=== PATIENT | female | born 2000 | race Caucasian/White ===

== ENCOUNTER 2022-02-02 12:17 | Emergency (ER) | payer MEDICAID ==
[2022-02-02] MEDS: Lidocaine 2% Viscous Solution 15 ML UD PO ONE (12:23)
[2022-02-02] MEDS: LORazepam 2 MG/ML SDV ONE (12:38)
[2022-02-02] MEDS: Midazolam 1 MG/ML 2 ML SDV IM ONE (12:39)
[2022-02-02] MEDS: LORazepam 2 MG/ML SDV IM STA (12:39)
[2022-02-02] MEDS: Lidocaine 2% Viscous Solution 15 ML UD ONE (12:55)
== END 2022-02-02 14:20 | disposition home or self-care (01) ==
LOC: FB.ED 12:17
DX: S09.90XA Unspecified injury of head, initial encounter (principal); S61.302A Unspecified open wound of right middle finger with damage to nail, initial encounter; R55 Syncope and collapse; Z91.040 Latex allergy status; W22.8XXA Striking against or struck by other objects, initial encounter
CPT/HCPCS: 70450; 96372; 99284; A9270; J2060

== ENCOUNTER 2022-02-28 12:40 | Emergency (ER) | payer OTHER, MEDICAID ==
[2022-02-28] MEDS ORDERED: Sodium Chloride 0.9% 10 ML Syringe FLUSH PRN (13:05)
[2022-02-28] MEDS ORDERED: Ketorolac 30 MG/ML SDV IVPUSH ONE (13:11)
[2022-02-28] MEDS ORDERED: Cyclobenzaprine 10 MG Tab PO ONE (13:11)
[2022-02-28 13:34] LABS: ESTIMATED GFR 94 mL/min (>60)
[2022-02-28] MEDS ORDERED: Sodium Chloride 0.9% 1,000 ML IV SCH (14:15)
== END 2022-02-28 16:15 | disposition home or self-care (01) ==
LOC: FB.ED 12:40
DX: S16.1XXA Strain of muscle, fascia and tendon at neck level, initial encounter (principal); S29.012A Strain of muscle and tendon of back wall of thorax, initial encounter; R55 Syncope and collapse; Z91.040 Latex allergy status; Z91.018 Allergy to other foods; Z79.899 Other long term (current) drug therapy; V49.40XA Driver injured in collision with unspecified motor vehicles in traffic accident, initial encounter; Y92.410 Unspecified street and highway as the place of occurrence of the external cause
CPT/HCPCS: 36415; 70450; 72040; 72072; 72100; 80053; 81001; 82150; 83690; 85025; 85610; 85730; 93005; 96374; 99285; A9270; J1885; J7030

== ENCOUNTER 2022-03-02 23:18 | Emergency (ER) | payer MEDICAID, OTHER | END 2022-03-03 | disposition home or self-care (01) | LOC: FB.ED 23:18 | DX: R42 Dizziness and giddiness (principal); Z79.899 Other long term (current) drug therapy; Z88.8 Allergy status to other drugs, medicaments and biological substances | CPT/HCPCS: 99284 ==

== ENCOUNTER 2022-03-18 19:32 | Emergency (ER) | payer MEDICAID, OTHER ==
[2022-03-18 20:00] LABS: ESTIMATED GFR 109 mL/min (>60)
== END 2022-03-18 21:45 | disposition home or self-care (01) ==
LOC: FB.ED 19:32
DX: G90.A Postural orthostatic tachycardia syndrome [POTS] (principal); Z91.040 Latex allergy status; Z91.018 Allergy to other foods; Z79.899 Other long term (current) drug therapy
CPT/HCPCS: 36415; 80053; 81001; 85025; 99284

== ENCOUNTER 2022-03-21 16:56 | Emergency (ER) | payer MEDICAID, OTHER ==
[2022-03-21 17:29] LABS: ESTIMATED GFR 128 mL/min (>60)
[2022-03-21] MEDS ORDERED: Ammonia Inhalant Amp ONE (17:45)
[2022-03-21] MEDS ORDERED: Ammonia Inhalant Amp INH ONE (17:45)
[2022-03-21] MEDS ORDERED: Sodium Chloride 0.9% 1,000 ML IV ONE (17:52)
[2022-03-21] MEDS ORDERED: LORazepam 2 MG/ML SDV IVPUSH ONE (17:52)
== END 2022-03-21 21:12 ==
LOC: FB.ED 16:56
DX: R55 Syncope and collapse (principal); R56.9 Unspecified convulsions; R40.4 Transient alteration of awareness; F17.210 Nicotine dependence, cigarettes, uncomplicated; Z91.040 Latex allergy status; Z91.018 Allergy to other foods; Z79.899 Other long term (current) drug therapy; Z20.822 Contact with and (suspected) exposure to COVID-19
CPT/HCPCS: 36415; 70450; 80053; 80307; 81001; 81025; 83735; 84443; 85025; 87635; 93005; 96361; 96374; 99285; J2060; J7030; U0002

== ENCOUNTER 2022-04-23 18:33 | Emergency (ER) | payer MEDICAID ==
[2022-04-23] MEDS ORDERED: hydrOXYzine HCl 25 MG Tab PO ONE (18:42)
[2022-04-23] MEDS ORDERED: Midodrine 5 MG Tab PO ONE ×2 (18:50→19:00)
[2022-04-23 19:07] LABS: ESTIMATED GFR 94 mL/min (>60)
[2022-04-23 19:40] LABS: CORONAVIRUS COVID-19 NAA NEGATIVE (NEGATIVE)
== END 2022-04-23 20:17 | disposition home or self-care (01) ==
LOC: FB.ED 18:33
DX: R56.9 Unspecified convulsions (principal); J02.9 Acute pharyngitis, unspecified; F17.210 Nicotine dependence, cigarettes, uncomplicated; Z91.040 Latex allergy status; Z91.018 Allergy to other foods; Z79.899 Other long term (current) drug therapy; Z20.822 Contact with and (suspected) exposure to COVID-19
CPT/HCPCS: 0240U; 36415; 80053; 83735; 85025; 87651; 93005; 99285; A9270

== ENCOUNTER 2022-04-26 08:55 | Emergency (ER) | payer MEDICAID | END 2022-04-26 10:15 | disposition home or self-care (01) | LOC: FB.ED 08:55 | DX: R56.9 Unspecified convulsions (principal); G90.A Postural orthostatic tachycardia syndrome [POTS]; Z91.040 Latex allergy status; Z91.018 Allergy to other foods; Z79.899 Other long term (current) drug therapy | CPT/HCPCS: 99284 ==

== ENCOUNTER 2022-05-02 23:55 | Emergency (ER) | payer MEDICAID ==
[2022-05-03] MEDS ORDERED: Ibuprofen 600 MG Tab PO ONE (00:28)
== END 2022-05-03 00:53 | disposition home or self-care (01) ==
LOC: FB.ED 23:55
DX: R56.9 Unspecified convulsions (principal); R55 Syncope and collapse; J45.909 Unspecified asthma, uncomplicated; Z91.040 Latex allergy status; Z91.018 Allergy to other foods; Z79.899 Other long term (current) drug therapy
CPT/HCPCS: 93005; 99285; A9270